=== PATIENT | male | born 1995 | race African-American/Black ===

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

== ENCOUNTER 2020-08-02 10:44 | Emergency (ER) | payer BC, OTHER ==
[2020-08-02 10:57] VITALS: BP 142/86; PULSE 64; RESP 16; TEMP 98.1
[2020-08-02] MEDS ORDERED: KETOROLAC 15 MG/ML 1 ML VIAL IVP STA (11:22)
--- NOTE | 2020-08-02 11:22 | ED ---
Neck Injury/Pain HPI - General Chief Complaint: Neck Pain/Injury Stated Complaint: Neck pain Time Seen by Provider: 08/02/20 11:03 Mode of arrival: ambulatory Limitations: no limitations - History of Present Illness Initial Comments: Patient is a 25-year-old male presenting to the emergency Department with complaints of right-sided neck pain that happened when he woke up this morning. Patient states he woke up rolled over and felt pain in the right side of his neck. He denies any previous injuries or surgeries to his neck. He states his has happened in the past. He did not take any Tylenol or Motrin. He states he called his mom and came right to the ER. He denies any fever or chills, no numbness and tingling into his upper extremities. Denies any injuries or trau ma. He has no further complaints. - Related Data Home Medications Medication Instructions Recorded Confirmed Fluticasone Nasal [place] [Flonase 2 spray EA NOSTRIL MOTUWETHFR 01/11/16 11/02/16 Nasal [place]] Cetirizine HCl [Zyrtec] 10 mg PO BID 11/02/16 11/02/16 Previous Rx's Medication Instructions Recorded Albuterol Inhaler (Mhu) [Ventolin 1 - 2 puff INHALATION Q4-6H PRN #1 11/02/16 Hfa Inhaler (Mhu)] inhaler Azithromycin [Zithromax] 250 mg PO DIRECTED #6 tab 11/02/16 predniSONE 50 mg PO DAILY #5 tab 11/02/16 Cyclobenzaprine [Flexeril] 5 mg PO BID #10 tablet 08/02/20 Allergies Allergy/AdvReac Type Severity Reaction Status Date / Time grass pollen-perennial rye, Allergy Swelling Verified 08/02/20 10:57 standar house dust mite Allergy Swelling Verified 08/02/20 10:57 tree and shrub pollen Allergy Swelling Verified 08/02/20 10:57 Review of Systems ROS Statement: Those systems with pertinent positive or pertinent negative responses have been documented in the HPI. ROS Other: All systems not noted in ROS Statement are negative. Past Medical History Additional Past Medical History / Comment(s): irregular heartbeat History of Any Multi-Drug Resistant Organisms: None Reported Past Surgical History: No Surgical Hx Reported Past Psychological History: Anxiety Smoking Status: Never smoker Past Alcohol Use History: Occasional Past Drug Use History: None Reported General Exam - General Exam Comments Initial Comments: GENERAL: Patient is well-developed and well-nourished. Patient is nontoxic and in no acute distress. HEAD: Atraumatic, normocephalic. EYES: Pupils equal round and reactive to light, extraocular movements intact, sclera anicteric, conjunctiva are normal. Eyelids were unremarkable. ENT: TMs normal, nares patent, oropharynx clear without exudates. Moist mucous membranes. NECK: Patient has decreased neck range of motion secondary of tightness. He does have some muscle spasms present on the right side of the neck, cervical paraspinals, upper trapezius muscles. He has no midline tenderness., supple without lymphadenopathy or JVD. LUNGS: Unlabored respirations. Breath sounds clear to auscultation bilaterally and equal. No wheezes rales or rhonchi. HEART: Regular rate and rhythm without murmurs, rubs or gallops. ABDOMEN: Soft, nontender, normoactive bowel sounds. No guarding, no rebound. No masses appreciated. : Deferred MUSCULOSKELETAL: Normal extremities with adequate strength and normal range of motion, no pitting or edema. No clubbing or cyanosis. NEUROLOGICAL: Patient is alert and oriented x 3. Motor and sensory are also intact. Cranial nerves II through XII grossly intact. Symmetrical smile. Normal speech, normal gait. PSYCH: Normal mood, normal affect. SKIN: Warm, Dry, normal turgor, no rashes or lesions noted. Limitations: no limitations Course Vital Signs 08/02/20 10:52 Temperature 98.1 F Pulse Rate 64 Respiratory 16 Rate Blood Pressure 142/86 O2 Sat by Pulse 99 Oximetry Medical Decision Making - Medical Decision Making Patient is a 25-year-old male here for muscle spasms of the right-sided neck that happen when he woke up this morning. His exam is consistent with these muscle spasms, no alarming symptoms, no acute neuro deficits, no midline tenderness of the cervical spine. I discussed the patient he is to use heat at home, will give him some muscle relaxers try at night time, gentle stretching. I'll also give him Toradol today. He can follow-up with his family doctor symptoms persist. Patient is stable for discharge. Patient is in agreement with this plan of care. Return parameters were discussed with the patient and they verbalized understanding. Case discussed with Dr. Foote. Disposition Clinical Impression: Strain of neck muscle, Muscle spasms of neck Disposition: HOME SELF-CARE Condition: Stable Instructions (If sedation given, give patient instructions): Cervical Strain (ED) Additional Instructions: Please return to the Emergency Department if symptoms worsen or any other concerns. Recommend heat to the area, very gentle stretching. Continue with Tylenol and/or Motrin for any discomfort. May use muscle relaxers at night. Prescriptions: Cyclobenzaprine [Flexeril] 5 mg PO BID #10 tablet Is patient prescribed a controlled substance at d/c from ED?: No Referrals: Es Day DO [Primary Care Provider] - 1-2 days
== END 2020-08-02 11:37 | disposition home or self-care (01) ==
LOC: EC 10:44
DX: S16.1XXA Strain of muscle, fascia and tendon at neck level, initial encounter (principal); Z79.51 Long term (current) use of inhaled steroids; Z91.048 Other nonmedicinal substance allergy status; X58.XXXA Exposure to other specified factors, initial encounter
CPT/HCPCS: 99283; 96374; J1885

== ENCOUNTER 2024-01-06 23:05 | Emergency (ER) | payer BC ==
[~2024-01-06 23:05] MED LIST: ASPIRIN 81 MG ONE; SODIUM CHLORIDE 0.9% 1,000 ML BAG ONE
[2024-01-07] MEDS ORDERED: ASPIRIN 81 MG ONE (00:07)
--- NOTE | 2024-02-15 11:51 | XR ---
Patient: Eduardo Patel J Ordering Physician: Unknown, Unknown ID: [id number] Phone, Pager: Phone: N/A Pager: N/A : 1995 Age/Gender: 28Y, M Primary Location: N/A Procedure: CXR 2VIEW Study Satya e: 01/07/2024 12:20:00 AM EXAMINATION TYPE: XR chest 2V DATE OF EXAM: 01/23/2024 1:21 PM CLINICAL INDICATION: Chest pain left arm numbness COMPARISON: Chest radiographs from 11/02/2016 TECHNIQUE: XR chest 2V Frontal view of the chest. FINDINGS: Lungs/Pleura: There is no evidence of pleural effusion, focal consolidation, or pneumothorax. Pulmonary vascularity: Unremarkable. Heart/mediastinum: Cardiomediastinal silhouette is unremarkable. Musculoskeletal: No acute osseous pathology. Other findings: None IMPRESSION: No acute cardiopulmonary disease/process.
== END 2024-01-07 02:55 | disposition home or self-care (01) ==
LOC: EC 23:05 → MERGE 23:05 → EC 01-07 02:55
DX: R55 Syncope and collapse (principal)
CPT/HCPCS: 71046; 80053; 84484; 85025; 93005; 99284

== ENCOUNTER → 2024-08-17 | Outpatient (CLI) | payer BC ==
--- NOTE | 2024-08-17 23:25 | CT ---
EXAMINATION TYPE: CT soft tissue neck w con DATE OF EXAM: 08/17/2024 4:03 PM COMPARISON: 09/26/2015. CLINICAL INDICATION: Male, 29 years old with history of R59.0 LOCALIZED ENLARGED LYMPH NODES; PHH, Ma ss on left side of neck that was noticed 10 years ago. TECHNIQUE: Standard enhanced CT of the neck. Axial sections with coronal and sagittal reformats were obtained. Contrast used:100ml mL of Isovue 300 with IV Contrast, (None if empty) Oral contrast used: (None if empty) CT DLP: 457.9 mGycm, Automated exposure control for dose reduction was used. FINDINGS: Brain: Visualized portions are grossly unremarkable. Orbits: Unremarkable Sinuses: Grossly unremarkable. Spaces of the neck: Clear and symmetric. Palpable marker in the left neck correlates with symmetric a ppearing soft tissues. There is a prominent nonenlarged jugulodigastric lymph node deep to sternoclei domastoid muscle measuring 9 mm in thickness which is within normal limits. No other suspicious mass fluid collection identified. Musculoskeletal: No acute osseous pathology. Lymph nodes: Multiple nonenlarged lymph nodes are seen along both anterior chains of the neck. Vascular structures: Visualized major arteries are patent without evidence of aneurysm.Slitlike appea dianna of the bilateral internal jugular veins series 3 image 66 where they are compressed against the first vertebral body and styloid process. This is resulting in additional dilated other venous vascu lar structures into the base of the neck around the C1 vertebrae most pronounced on the right Thoracic Inlet/airway: Airway is patent. The lung apices are clear. Soft tissues/Thyroid: Thyroid and remainder of the soft tissues are unremarkable. Other: none. IMPRESSION: 1. Left palpable marker is near the jugulodigastric lymph node which is within normal limits. No fanny picious mass or lymphadenopathy identified. No significant change from 2016. 2. Slitlike appearance of the bilateral internal jugular veins series 3 image 66 where they are comp ressed against the first vertebral body and styloid process. Correlate for [place] syndrome. Findings s imilar to prior in 2016. [facility], , 08/17/2024 11:23 PM
== END | disposition home or self-care (01) ==
LOC: RADCTMAIN 15:10
PROVIDERS: ATTEND Family Medicine
DX: R59.0 Localized enlarged lymph nodes (principal)
CPT/HCPCS: 70491; Q9967